=== PATIENT | female | born 1975 | race Two or more races ===

== ENCOUNTER 2025-02-25 22:07 | Inpatient (IN) | payer BC ==
[~2025-02-25] VITALS: Ht 162.6 cm; Wt 98.2 kg
[2025-02-25 22:29] VITALS: O2SAT 98
[2025-02-25] MEDS ORDERED: ONDANSETRON HCL 4MG/2ML INJ IV ONE (23:15)
[2025-02-25] MEDS ORDERED: MECLIZINE 25MG TABLET PO ONE (23:15)
[2025-02-25] MEDS ORDERED: ACETAMINOPHEN 325MG TABLET PO ONE (23:15)
[2025-02-26 00:15] LABS: INR 1.0
[2025-02-26 00:18] LABS: CREATININE 0.6 mg/dL (0.6-1.0); UREA NITROGEN BLOOD 15 mg/dL (9-23)
[2025-02-26 00:19] LABS: ETHANOL BLOOD < 10 mg/dL (<10); TROPONIN I HIGH SENSITIVITY < 4 ng/L (3.0-34)
[2025-02-26 00:42] LABS: BASOPHILS % 0.9 % (0.0-2.0); EOSINOPHILS % 2.4 % (0.0-5.0); HEMATOCRIT. 35.2 % (36.0-48.0); HEMOGLOBIN. 11.7 g/dL (12.0-16.0); LYMPHOCYTES % 31.9 % (20.0-50.0); MEAN PLATELET VOLUME 8.7 fl (7.4-10.4); MONOCYTES % 5.5 % (2.0-8.0); NEUTROPHILS % 59.3 % (40.0-76.0); PLATELET 253 x1000/uL (130-400); RED BLOOD CELL COUNT 4.67 mill/uL (4.2-5.4); RED CELL DISTRIBUTION WIDTH 18.0 % (11.6-14.6)
[2025-02-26] MEDS: MECLIZINE 25MG TABLET PO SCH (01:56)
[2025-02-26] MEDS: ONDANSETRON HCL 4MG/2ML INJ IV SCH (01:56)
[2025-02-26] MEDS: IOHEXOL-350 100 ML BOTTLE ONE (01:56)
[2025-02-26] MEDS: ACETAMINOPHEN 325MG TABLET PO SCH (01:57)
[2025-02-26] MEDS ORDERED: MECLIZINE 25MG TABLET PO PRN (05:45)
[2025-02-26] MEDS ORDERED: DEXTROSE 50% WATER 50ML SYRINGE IV PRN (05:45)
[2025-02-26] MEDS ORDERED: DIPHENHYDRAMINE 50MG/ML VIAL IV PRN (05:45)
[2025-02-26] MEDS ORDERED: MAGNESIUM/ALUMINUM HYDROXIDE/SIMETHICONE 30ML UDC PO PRN (05:45)
[2025-02-26] MEDS ORDERED: CLONIDINE 0.1MG TABLET PO PRN (05:45)
[2025-02-26] MEDS ORDERED: ACETAMINOPHEN 325MG TABLET PO PRN (05:45)
[2025-02-26] MEDS ORDERED: ONDANSETRON HCL 4MG/2ML INJ IV PRN (05:45)
[2025-02-26 06:45] VITALS: BP 116/65; PULSE 82; RESP 20; TEMP 36.9184
[2025-02-26] MEDS: SODIUM CHLORIDE 0.9% 3ML FLUSH IVF SCH (06:56)
[2025-02-26] MEDS: BLOOD SUGAR DIAGNOSTIC STRIP TEST SCH (06:59)
[2025-02-26 07:19] LABS: CLARITY URINE CLEAR (CLEAR); COLOR URINE YELLOW (YELLOW); GLUCOSE URINE TRACE (NEGATIVE); KETONES URINE TRACE (NEGATIVE); LEUKOCYTE ESTERASE URINE NEGATIVE (NEGATIVE); NITRITE URINE NEGATIVE (NEGATIVE); OCCULT BLOOD URINE NEGATIVE (NEGATIVE); PH URINE 6.0 (4.5-8.0); PROTEIN URINE TRACE (NEGATIVE); SPECIFIC GRAVITY URINE 1.089 (1.005-1.030); UROBILINOGEN URINE 1.0 E.U./dL (0.2-1.0)
[2025-02-26 07:39] LABS: *AMPHETAMINES SCREEN URINE NEGATIVE (NEGATIVE); *BARBITURATES SCREEN URINE NEGATIVE (NEGATIVE); *BENZODIAZEPINES SCREEN URINE NEGATIVE (NEGATIVE); *COCAINE SCREEN URINE NEGATIVE (NEGATIVE); CANNABINOID URINE SCREEN NEGATIVE (NEGATIVE); METHADONE URINE SCREEN NEGATIVE (NEGATIVE); OPIATES URINE SCREEN NEGATIVE (NEGATIVE); PHENCYCLIDINE URINE SCREEN NEGATIVE (NEGATIVE)
[2025-02-26 07:40] LABS: ECSTASY MDMA SCREEN URINE NEGATIVE (NEGATIVE)
[2025-02-26 08:00] VITALS: BP 125/97; PULSE 79; RESP 16; TEMP 36.7; O2SAT 95
[2025-02-26 08:07] LABS: SQUAMOUS EPITHELIAL CELL URINE 2+ /lpf (RARE/1+)
[2025-02-26 08:08] LABS: BACTERIA URINE TRACE
[2025-02-26 08:09] LABS: MUCUS URINE TRACE /lpf (< = 2+)
[2025-02-26 08:10] LABS: RBC URINE NONE SEEN /hpf (0-2); WBC URINE 0-2 /hpf (0-2)
[2025-02-26] MEDS ORDERED: FAMO40TA7 PO (08:30)
[2025-02-26] MEDS ORDERED: ATOR10TA69 PO (08:30)
[2025-02-26] MEDS ORDERED: CHOL-36 PO (08:30)
[2025-02-26] MEDS ORDERED: METF-416 PO (08:30)
[2025-02-26] MEDS ORDERED: LISI10TA26 PO (08:30)
[2025-02-26] MEDS: INSULIN LISPRO 100 UNITS/ML SUBCUT SCH (08:46)
[2025-02-26 09:47] LABS: HEPATITIS C AB NON REACTIVE (Neg) (Negative)
[2025-02-26 12:00] VITALS: BP 128/73; PULSE 74; RESP 19; TEMP 36.9; O2SAT 98
[2025-02-26 16:00] VITALS: BP 112/62; PULSE 86; RESP 24; TEMP 36.6; O2SAT 98
[2025-02-26] MEDS: ACETAMINOPHEN 325MG TABLET PO PRN (17:44)
[2025-02-26 20:10] VITALS: BP 130/69; PULSE 73; RESP 21; TEMP 36.9; O2SAT 95
[2025-02-27] VITALS: PULSE 69; RESP 18; TEMP 36.8; O2SAT 94
[2025-02-27 01:03] VITALS: BP 112/63; PULSE 71; RESP 16; O2SAT 95
[2025-02-27 04:00] VITALS: BP 127/71; PULSE 65; RESP 15; TEMP 36.8; O2SAT 96
[2025-02-27 08:00] VITALS: BP 119/63; PULSE 77; RESP 15; TEMP 36.9; O2SAT 96
[2025-02-27 12:00] VITALS: BP 117/72; PULSE 80; RESP 15; TEMP 36.9; O2SAT 95
[2025-02-27 12:40] VITALS: BP 128/72; PULSE 96; RESP 20; TEMP 98.5
== END 2025-02-27 17:39 | disposition home or self-care (01) | DRG 48 ==
LOC: ER 22:07 → 3WST 02-26 03:58 → EDBEDREQ 02-26 04:00 → EDBEDREQTM 02-26 04:00 → ENRESERV 02-26 05:18 → 3WST 02-26 05:21
PROVIDERS: ADMIT Internal Medicine; ATTEND Internal Medicine
DX: G90.89 Other disorders of autonomic nervous system (principal); E11.65 Type 2 diabetes mellitus with hyperglycemia; R42 Dizziness and giddiness; M47.812 Spondylosis without myelopathy or radiculopathy, cervical region; I10 Essential (primary) hypertension; R51.9 Headache, unspecified; E66.9 Obesity, unspecified; Z68.37 Body mass index [BMI] 37.0-37.9, adult
CPT/HCPCS: 36415; 70496; 70498; 71045; 72141; 72146; 80048; 80305; 80320; 81003; 82962; 83036; 83735; 84484; 85025; 86705; 87340; 93005; 93970; 96374; 99285; A4606; J1815; J2405; J8597; Q9967; G0480